=== PATIENT | male | born 1965 | race Caucasian/White ===

== ENCOUNTER 2016-10-16 17:29 | Emergency (ER) | payer SELFPAY ==
--- NOTE | 2016-10-16 17:36 | ED Physician Chart ---
Chief Complaint/HPI - Patient Information Date Seen:: 10/16/16 Time Seen:: 17:30 Chief Complaint:: Intermittent vertigo since this morning. History of Present Illness:: Pt is Chinese speaking. Interpretation is provided by his [id number] Aparna per pt's request. No confusion. No STARK or lightheadedness. No CP or discomfort. No dyspnea or palpitation. No N/V/D. Vertigo can be precipitated with changes in head positions. Allergies:: NKA Vitals:: see Nurse Note. Historian:: Patient, Family Member ([id number] Aparna.) Family MD/PCP:: Unknown. Pt does not recall the name of his PCP. LMP:: N/A Review:: Nurse's Note Reviewed Review of Systems - Review of Systems General/Constitutional: No fever, No chills, No weight loss, No weakness, No diaphoresis, No edema, No loss of appetite Skin: No skin lesions, No rash, No bruising Head: No headache, No light-headedness Eyes: No loss of vision, No pain, No diplopia, Other (No visual changes) ENT: No earache, No nasal drainage, Sore throat (?), No tinnitus Neck: No neck pain, No swelling, No thyromegaly, No stiffness, No mass noted Cardio Vascular: No chest pain, No palpitations, No PND, No orthopnea, No edema Pulmonary: No SOB, No cough, No sputum, No wheezing GI: No nausea, No vomiting, No diarrhea, No pain, No melena, No hematochezia, No constipation, No hematemesis G/U: No dysuria, No frequency, No hematuria Musculoskeletal: No bone or joint pain, No back pain, No muscle pain Endocrine: No polyuria, No polydipsia Psychiatric: No prior psych history Hematopoietic: No bruising, No lymphadenopathy Allergic/Immuno: No urticaria, No angioedema Neurological: No syncope, No focal symptoms, No weakness, No paresthesia, No headache, No seizure, No dizziness, No confusion, Vertigo Past Medical History - Past Medical History Past Medical History: HTN, DM, Dyslipidemia, Seizures, Other (cardiac dysrrhythmia, s/p pacemaker placement '02.) Family History: None Social History: Smoker (One ppd . Pt has been informed about health risks associated with chronic tobacco use and has been advised to quit. Pt has been encouraged to enroll in a smoking cessation program. Pt acknowleddges understanding.), No Alcohol, No Drug Use Surgical History: Pacemaker ('02) Psychiatricy History: None Medication: Reviewed Family Medical History - Family Member Mother History Unknown: Yes Ethnicity: Physical Exam - Physical Examination General/Constitutional: Awake, Well-developed, well-nourished, Alert, No distress, Non-toxic appearing, Ambulatory Other Gen/Cons comments:: Breathes comfortably, speaks clearly, and ambulates without assistance without difficulty. Head: Atraumatic Eyes: Lids, conjuctiva normal, PERRL, EOMI Other Eyes comments:: No nystagmus Skin: Nl inspection, No rash, No skin lesions, No ecchymosis, Well hydrated, No lymphadenopathy ENMT: External ears, nose nl, Nasal exam nl, Lips, teeth, gums nl, Oropharynx nl , Tonsils nl Neck: Nontender, Full ROM w/o pain, No JVD, No nuchal rigidity, No mass, No stridor Respiratory: Nl effort/Exclusion, Clear to Auscultation, No Wheeze/Rhonchi/Rales Cardio Vascular: RRR, No murmur, gallop, rubs Other Cardio Vascular comments:: There is a subcutaneous induration on L upper chest c/w pacemaker implantation. GI: No tenderness/rebounding/guarding, No organomegaly, No hernia, Normal BS's, Nondistended, No mass/bruits, No McBurney tenderness Other GI comments:: Abdomen is soft. Extremities: No tenderness or effusion, Full ROM, normal strength in all extremities, No edema, Normal digits & nails Neuro/Psych: Alert/oriented (knows her name, that he is in a hospital in the afternoon.), DTR's symmetric, Normal sensory exam, Normal motor strength, Mood normal, Normal gait, No focal deficits Other Neuro/Psych comments:: Cerebellar exam (F to N, RACHEL): normal Negative Halpike [place] Manuver. Labs/Radiology/EKG Results - Lab Results Results: Laboratory Tests 10/16/16 10/16/16 10/16/16 17:56 17:59 17:59 WBC 5.3 RBC 4.74 Hgb 14.2 Hct 40.9 MCV 86.3 MCH 30.0 MCHC Differential 34.7 RDW 13.5 Plt Count 306 MPV 6.7 Neutrophils (Manual) 43 Lymphocytes 42 Monocytes 11 H Eosinophils 3 Atypical Lymphocytes 1 Platelet Estimate ADEQUATE Platelet Morphology NORMAL RBC Morph Micro Appear NORMAL PT 9.9 INR 0.95 PTT (Actin FS) 21.8 L Sodium Potassium Chloride Carbon Dioxide Anion Gap BUN Creatinine Est GFR ( Amer) Est GFR (Non-Af Amer) BUN/Creatinine Ratio Glucose POC Glucose 140 H Calcium Total Bilirubin AST ALT Alkaline Phosphatase Creatine Kinase Troponin I Total Protein Albumin Globulin Albumin/Globulin Ratio Urine Source Urine Color Urine Clarity Urine pH Ur Specific [place] Urine Protein Urine Glucose (UA) Urine Ketones Urine Blood Urine Nitrate Urine Bilirubin Urine Urobilinogen Ur Leukocyte Esterase Urine RBC Urine WBC Ur Epithelial Cells Calcium Oxalate Crystal Urine Bacteria Urine Mucus Valproic Acid 10/16/16 10/16/16 10/16/16 17:59 17:59 18:30 WBC RBC Hgb Hct MCV MCH MCHC Differential RDW Plt Count MPV Neutrophils (Manual) Lymphocytes Monocytes Eosinophils Atypical Lymphocytes Platelet Estimate Platelet Morphology RBC Morph Micro Appear PT INR PTT (Actin FS) Sodium 141 Potassium 4.0 Chloride 103 Carbon Dioxide 29.6 Anion Gap 12.4 BUN 8 Creatinine 0.7 Est GFR ( Amer) > 60.0 Est GFR (Non-Af Amer) > 60.0 BUN/Creatinine Ratio 11.4 Glucose 114 H POC Glucose Calcium 9.6 Total Bilirubin 0.2 L AST 12 L ALT 13 Alkaline Phosphatase 37 Creatine Kinase 54 Troponin I < 0.01 L Total Protein 7.1 Albumin 4.1 L Globulin 3.0 Albumin/Globulin Ratio 1.4 Urine Source MIDSTREAM Urine Color YELLOW Urine Clarity CLEAR Urine pH 6.0 Ur Specific [place] 1.025 Urine Protein NEGATIVE Urine Glucose (UA) NEGATIVE Urine Ketones TRACE Urine Blood TRACE Urine Nitrate NEGATIVE Urine Bilirubin NEGATIVE Urine Urobilinogen 2.0 Ur Leukocyte Esterase NEGATIVE Urine RBC 0-2 H Urine WBC 0-2 Ur Epithelial Cells RARE Calcium Oxalate Crystal FEW Urine Bacteria OCCASIONAL Urine Mucus FEW Valproic Acid 79.7 - Radiology Results Results: PCXR: Based on my interpretation: Pacemaker on L chest. NAD otherwise. Official report is pending. - EKG Interpretations EKG Time:: 17:40 Rate & Rhythm: NSR with VR 87 Comments:: No acute ischemic changes. panel monitor: NSR with VR 89. No ectopy. ED Septic Shock - . Is Septic Shock (SBP<90, OR Lactate>4 mmol\L) present?: No Reassessment (Disposition) - Reassessment Reassessment:: 1951 Pt has been repeatedly evaluated. Pt remains stable without subjective complaint. When pt changes his body position and head position. His vertigo reoccurs. Reexamination shows no new findings except positive Halpike [place] manuver. Pt is to be given meclizine. 2139 Pt feels much better. Vertigo has subsided. Pt has been ambulatory without assistance without difficulty. Lab, EKG, CXR findings have been reviewed with pt. Pt requests to go home now and does not want further observation/management in hospital. Pt will be followed with PCP tomorrow. Aftercare instructions have been given. Interpretation by his [id number] Aparna, who will also drive him home. Reassessment Condition:: Improved - Diagnosis Diagnosis:: Acute labyrinthitis/BPPV - Aftercare/Follow up Instructions Aftercare/Follow-Up Instructions:: Refer to Discharge Instructions Notes:: Bedrest today. Drowsiness precautions given. Avoid potentially hazardous activities with the use of meclizine or symptom of vertigo. F/U with Dr. Arechiga or PCP of pt's choice in one day for recheck. Return to ER immediately if condition worsens or if any further questions/problems. Medication Prescribed:: Meclizine 25 mg tab one tab po q6h prn vertigo D-10 R-0 - Patient Disposition Discharge/Transfer:: Home Time:: 21:50 Condition at Disposition:: Stable, Improved
[2016-10-16 18:08] LABS: HEMATOCRIT 40.9 % (39.0-49.0); HEMOGLOBIN 14.2 gm/dL (13.2-17.3); MEAN CELL VOLUME 86.3 fl (80-99); MEAN CORPUSCULAR HGB CONC 34.7 pg (28.0-36.0); MEAN PLATELET VOLUME 6.7 fl; PLATELET COUNT 306 Th/cmm (150-400); RED BLOOD COUNT 4.74 Mil/cmm (4.30-5.70); RED CELL DISTRIBUTION WIDTH 13.5 % (11.5-20.0); WHITE BLOOD COUNT 5.3 Th/cmm (4.8-10.8)
[2016-10-16 18:20] LABS: INR 0.95 (0.5-1.4); PROTHROMBIN TIME (TEST) 9.9 SECONDS (9.5-11.5)
[2016-10-16 18:24] LABS: ALB/GLOB RATIO 1.4 (1.0-1.8); ALKALINE PHOSPHATASE 37 U/L (34-104); ANION GAP 12.4 (7.0-16.0); BILIRUBIN,TOTAL 0.2 mg/dL (0.3-1.0); BUN - UREA NITROGEN 8 mg/dL (7-25); BUN/CREATININE RATIO 11.4; CALCIUM SERUM 9.6 mg/dL (8.6-10.3); CARBON DIOXIDE 29.6 mEq/L (21.0-31.0); CHLORIDE 103 mEq/L (98-107); CREATININE - SERUM 0.7 mg/dL (0.7-1.3); GLUCOSE 114 mg/dL (70-105); SGOT 12 U/L (13-39); SGPT/ALT 13 U/L (7-52); SODIUM SERUM 141 mEq/L (136-145)
[2016-10-16 18:25] LABS: TROP I < 0.01 ng/mL (0.01-0.05)
[2016-10-16 18:33] LABS: EOSINOPHIL 3 % (0-5); NEUTROPHILS 43 % (40-80); TOTAL CELLS COUNTED 100
[2016-10-16 18:34] LABS: PLATELET ESTIMATE ADEQUATE (NORMAL); PLATELET MORPHOLOGY NORMAL (NORMAL); VALPROIC ACID 79.7 ug/mL (50.0-100.0)
[2016-10-16 18:43] LABS: URINE BILIRUBIN NEGATIVE (NEGATIVE); URINE BLOOD TRACE (NEGATIVE); URINE COLOR YELLOW; URINE GLUCOSE (UA) NEGATIVE (NEGATIVE); URINE KETONE TRACE mg/dL (NEGATIVE); URINE PROTEIN NEGATIVE (NEGATIVE)
[2016-10-16 18:44] LABS: URINE BACTERIA OCCASIONAL /hpf (NONE SEEN); URINE CALCIUM OXALATE CRYSTALS FEW /hpf; URINE EPITHELIAL CELLS RARE /lpf (FEW); URINE RBC 0-2 /hpf (0-5); URINE WBC 0-2 /hpf (0-5)
--- NOTE | 2016-10-17 08:44 | Diagnostic Imaging Report ---
Portable chest x-ray History: Pain Allowing for portable technique the heart size is normal. No focal pulmonary parenchymal processes. No hilar or mediastinal abnormalities. Electrode pack projects over the left chest. Impression: No acute abnormalities.
== END 2016-10-16 22:10 | disposition home or self-care (01) ==
LOC: ER 17:29
DX: R42 Dizziness and giddiness (principal); I10 Essential (primary) hypertension; E11.9 Type 2 diabetes mellitus without complications; E78.5 Hyperlipidemia, unspecified; Z95.0 Presence of cardiac pacemaker; F17.210 Nicotine dependence, cigarettes, uncomplicated
CPT/HCPCS: 36415-UA; 71010-TC; 80053-TC; 80164-TC; 81001-TC; 82550-TC; 82948-90; 84484-TC; 85007-TC; 85027-TC; 85610-TC; 93005